=== PATIENT | male | born 1980 | race African-American/Black ===

== ENCOUNTER 2024-04-28 08:52 | Emergency (ER) | payer BC ==
--- NOTE | 2024-04-28 09:07 | ER ---
Nurse's Notes [facility] Name: Gabriela Mcelroy Age: 43 yrs Sex: Male : 1980 Arrival Date: 04/28/2024 Time: 08:52 Bed 16 Private MD: Diagnosis: Acute serous otitis media, left ear Presentation: 04/28 09:04 Chief complaint: Patient states: L ear pain for 3 days. Coronavirus screen: Client ll1 denies travel out of the [place] in the last 14 days. At this time, the client does not indicate any symptoms associated with coronavirus-19. Ebola Screen: Patient denies travel to an Ebola-affected area in the 21 days before illness onset. Initial Sepsis Screen: Does the patient meet any 2 criteria? No. Patient's initial sepsis screen is negative. Does the patient have a suspected source of infection? No. Patient's initial sepsis screen is negative. Risk Assessment: Do you want to hurt yourself or someone else? Patient reports no desire to harm self or others. Onset of symptoms was April 26, 2024. 09:04 Method Of Arrival: Ambulatory ll1 09:04 Acuity: AMBER 4 ll1 Triage Assessment: 09:06 Pain: Complains of pain in left ear Pain currently is 7 out of 10 on a pain scale. ll1 Quality of pain is described as aching, throbbing. EENT: Reports pain in left ear. 09:15 General: Appears in no apparent distress. Behavior is calm, cooperative, appropriate ll1 for age. Historical: - PMHx: 09:06 None; ll1 - PSHx: 09:06 None; ll1 - Immunization history:: Adult Immunizations. - Infectious Disease History:: Denies. - Social history:: Smoking status: Patient denies any tobacco usage or history of. - Family history:: not pertinent. Screenin:15 [facility] ED Fall Risk Assessment (Adult) History of falling in the last 3 months, ll1 including since admission No falls in past 3 months (0 pts) Confusion or Disorientation No (0 pts) Intoxicated or Sedated No (0 pts) Impaired Gait No (0 pts) Mobility Assist Device Used No (0 pt) Altered Elimination No (0 pt) Score/Fall Risk Level 0 - 2 = Low Risk Maintained a safe environment, Hourly rounding (assess needs \T\ fall precautionary measures) done. Abuse screen: Denies threats or abuse. Nutritional screening: No deficits noted. Tuberculosis screening: No symptoms or risk factors identified. Vital Signs: 09:05 BP 123 / 88; Pulse 57; Resp 16; Temp 97.6; Pulse Ox 99% ; Weight 97.52 kg; Height 6 ft. ll1 3 in. ; Pain 7/10; 09:05 Body Mass Index 26.87 (97.52 kg, 190.5 cm) ll1 09:05 Pain Scale: Adult ll1 ED Course: 08:55 Patient arrived in ED. mr 08:57 Ajit Boston MD is Attending Physician. rt 08:59 Arm band placed on Patient placed in an exam room, on a stretcher. ll1 09:04 Triage completed. ll1 09:15 No provider procedures requiring assistance completed. Patient did not have IV access ll1 during this emergency room visit. 09:16 Patient has correct armband on for positive identification. Provided Education on: ll1 Finish all prescribed antibiotics. Administered Medications: No medications were administered Medication: 09:16 VIS not applicable for this client. ll1 Outcome: 09:07 Discharge ordered by . rt 09:16 Discharged to home ambulatory, ll1 09:16 Condition: stable 09:16 Discharge instructions given to patient, Instructed on discharge instructions, follow up and referral plans. medication usage, Demonstrated understanding of instructions, follow-up care, medications, Prescriptions given X 2, 09:16 Patient left the ED. ll1 Signatures: Brunilda Simpson, Reg Reg mr Dea Pillai RN RN ll1 Ajit Boston MD MD rt Corrections: (The following items were deleted from the chart) 09:06 09:04 Chief complaint: Patient states: Ear pain for 3 days ll1 ll1
--- NOTE | 2024-04-28 09:07 | EDPHYS ---
Physician Documentation [facility] Name: Gabriela Mcelroy Age: 43 yrs Sex: Male : 1980 Arrival Date: 04/28/2024 Time: 08:52 Bed 16 Private MD: ED Physician Ajit Boston HPI: 04/28 09:08 This 43 yrs old Black Male presents to ER via Ambulatory with complaints of Ear Pain. rt 09:08 Patient presents to the ED with 3 days of ear pain. Denies drainage, denies recent rt illness. Has not take anything for the pain. Denies other acute complaints at this time, symptoms are mild in severity, nonradiating, no other aggravating elevating factors.. Historical: - PMHx: 09:06 None; ll1 - PSHx: 09:06 None; ll1 - Immunization history:: Adult Immunizations. - Infectious Disease History:: Denies. - Social history:: Smoking status: Patient denies any tobacco usage or history of. - Family history:: not pertinent. ROS: 09:08 Constitutional: Negative for fever, chills, and weight loss, Cardiovascular: Negative rt for chest pain, palpitations, and edema, Respiratory: Negative for shortness of breath, cough, wheezing, and pleuritic chest pain, Abdomen/GI: Negative for abdominal pain, nausea, vomiting, diarrhea, and constipation, Skin: Negative for injury, rash, and discoloration, Neuro: Negative for headache, weakness, numbness, tingling, and seizure, 09:08 ENT: Positive for ear pain, Negative for rhinorrhea, Exam: 09:08 Constitutional: This is a well developed, well nourished patient who is awake, alert, rt and in no acute distress. Head/Face: Normocephalic, atraumatic. Chest/axilla: Normal chest wall appearance and motion. Nontender with no deformity. No lesions are appreciated. Cardiovascular: Regular rate and rhythm with a normal S1 and S2. No gallops, murmurs, or rubs. Normal PMI, no JVD. No pulse deficits. Respiratory: Lungs have equal breath sounds bilaterally, clear to auscultation and percussion. No rales, rhonchi or wheezes noted. No increased work of breathing, no retractions or nasal flaring. Abdomen/GI: Soft, non-tender, with normal bowel sounds. No distension or tympany. No guarding or rebound. No evidence of tenderness throughout. Skin: Warm, dry with normal turgor. Normal color with no rashes, no lesions, and no evidence of cellulitis. MS/ Extremity: Pulses equal, no cyanosis. Neurovascular intact. Full, normal range of motion. 09:08 ENT: Scant discharge noted to the left EAC, left TM effusion noted. No signs of mastoiditis. Right TM is clear.. Vital Signs: 09:05 BP 123 / 88; Pulse 57; Resp 16; Temp 97.6; Pulse Ox 99% ; Weight 97.52 kg; Height 6 ft. ll1 3 in. ; Pain 7/10; 09:05 Body Mass Index 26.87 (97.52 kg, 190.5 cm) ll1 09:05 Pain Scale: Adult ll1 MDM: 09:01 Patient medically screened. rt 09:08 Differential diagnosis: otitis media, otitis externa. Data reviewed: vital signs, rt nurses notes. Test considered but Not performed: CT: No clinical signs of mastoiditis, CT scan not indicated. Counseling: I had a detailed discussion with the patient and/or guardian regarding the historical points, exam findings, and any diagnostic results supporting the discharge/admit diagnosis, the need for outpatient follow up, to return to the emergency department if symptoms worsen or persist or if there are any questions or concerns that arise at home. Administered Medications: No medications were administered Disposition Summary: 04/28/24 09:07 Discharge Ordered Notes: Location: Home rt Problem: new rt Symptoms: are unchanged rt Condition: Stable rt Diagnosis - Acute serous otitis media, left ear rt Followup: rt - With: Private Physician - When: 2 - 3 days - Reason: Discharge Instructions: - Discharge Summary Sheet rt - Otitis Media, Adult rt Forms: - Medication Reconciliation Form rt - Antibiotic Education rt - Prescription Opioid Use rt - Patient Portal Instructions rt - Leadership Thank You Letter rt Prescriptions: - Amoxicillin 875 mg Oral Tablet - take 1 tablet ORAL route every 12 hours for 10 days; 20 tablet; Refills: 0, rt Product Selection Permitted - Ciprodex 0.3-0.1 % Otic drops, suspension - instill 4 drops OTIC route every 12 hours for 7 days Please dispense QS for 7 rt days, for ears ONLY; 1 Each; Refills: 0, Product Selection Permitted Signatures: Dea Pillai RN RN ll1 Ajit Boston MD MD rt
[2024-04-28 09:26] VITALS: BP 123/88; TEMP 97.6; O2SAT 99
== END 2024-04-28 09:16 | disposition home or self-care (01) ==
LOC: ER 08:52
DX: H65.02 Acute serous otitis media, left ear (principal)
CPT/HCPCS: 99283